=== PATIENT | male | born 1990 | race Caucasian/White ===

== ENCOUNTER → 2016-11-18 | Outpatient (CLI) | payer BC ==
[2016-11-18 11:59] LABS: CHLORIDE,CL 106 mmol/L (98-110); SODIUM,NA 142 mmol/L (136-146)
== END ==
LOC: MW.CHIM 11:07
PROVIDERS: ATTEND Internal Medicine
DX: G62.9 Polyneuropathy, unspecified (principal)
CPT/HCPCS: 36415; 80053; 80061; 82652; 83036; 84207; 85025; 86038

== ENCOUNTER 2017-03-29 18:44 | Emergency (ER) | payer OTHER, BC ==
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
[2017-03-29 19:50] LABS: CHLORIDE,CL 107 mmol/L (98-110); SODIUM,NA 142 mmol/L (136-146)
[2017-03-29] MEDS ORDERED: Bacitracin Oint 1 GM U/D Packet TOP ONE (20:22)
[2017-03-30 01:42] VITALS: BP 156/87
--- NOTE | 2017-04-01 15:28 | CR ---
EXAM DATE: 03/29/17 PATIENT'S AGE: 26 Patient: IMELDA LEE Facility: [place], [place] Site . Site : 1990 Study: XRay Chest [id number]/2/2017 7:05:53 PM Ordering Physician: Doctor Morgan Final Report: HISTORY: Shortness of breath. TECHNIQUE: One view of the chest. COMPARISON: No prior. FINDINGS: Cardiac size and pulmonary vasculature are within normal limits. There is no lung infiltrate or pulmonary edema. No pneumothorax or pleural effusion. No acute bony abnormality. IMPRESSION: No acute disease. Dictated by Huy Bahena MD @ 03/29/2017 7:25:05 PM Dictated by: Huy Bahena MD @ 03/29/2017 19:25:09 (Electronic Signature) Report Signed by Proxy. HIRA
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
== END 2017-03-29 20:34 | disposition home or self-care (01) ==
LOC: MW.ED 18:44
DX: S50.312A Abrasion of left elbow, initial encounter (principal); M79.642 Pain in left hand; F17.210 Nicotine dependence, cigarettes, uncomplicated; Z87.442 Personal history of urinary calculi; V86.59XA Driver of other special all-terrain or other off-road motor vehicle injured in nontraffic accident, initial encounter
CPT/HCPCS: 36415; 71010; 71010-26; 73070-26-LT; 73070-LT; 73130-26-LT; 73130-LT; 80053; 81001; 85025; 93005; 99284; 99284-25